=== PATIENT | female | born 1995 | race Caucasian/White ===

== ENCOUNTER 2021-08-10 20:20 | Outpatient (REF) | payer BC, SELFPAY ==
[2021-08-13 09:57] LABS: HIV-1/2 Ag & Ab Screen Negative (Negative)
[2021-08-13 13:45] LABS: Syphilis Serology (RPR) Negative (Negative)
[2021-08-13 15:38] LABS: Chlamydia Result Negative (Negative); GC Result Negative (Negative)
== END 2021-08-10 20:21 | disposition home or self-care (01) ==
LOC: NCHCN 20:20
PROVIDERS: Visit Provider Registered Nurse
DX: Z11.3 Encounter for screening for infections with a predominantly sexual mode of transmission (principal); Z11.4 Encounter for screening for human immunodeficiency virus [HIV]
CPT/HCPCS: 87389; 87491; 87591; 86592

== ENCOUNTER 2022-04-23 02:08 | Outpatient (CLI) | payer BC, SELFPAY ==
[2022-04-23 11:51] LABS: Panorama Kit Sent via Fed Ex
[2022-04-23 12:00] LABS: Abs Immature Grans 0.04 10^3/uL (0.0-0.06); Absolute Basophil Count 0.03 10^3/uL (0.0-0.2); Absolute Eosinophil Count 0.06 10^3/uL (0.0-0.7); Absolute Lymphocyte Count 2.05 10^3/uL (1.2-3.4); Absolute Monocyte Count 0.84 10^3/uL (0.1-0.8); Basophils % 0.3; Eosinophils % 0.6; HCT 36.5 % (36.0-46.0); HGB 13.1 g/dL (11.2-15.7); Immature Grans % 0.4; Lymphocytes % 19.1; MCH 33.1 pg (27.0-33.0); MCHC 35.9 % (32.0-36.0); MCV 92 fL (80-95); MPV 10.2 fL (8.0-11.0); Monocytes % 7.8; Neutrophils % 71.8; Platelet Count 230 10^3/uL (130-400); RBC 3.96 10^6/uL (3.93-5.22); RDW 12.8 % (11.7-14.6); RDW-SD 42.8 fL; WBC 10.72 10^3/uL (4.4-10.8)
[2022-04-24 09:34] LABS: Hepatitis B Surface Ag Negative (Negative)
[2022-04-24 10:16] LABS: HIV-1/2 Ag & Ab Screen Negative (Negative)
[2022-04-24 12:15] LABS: Hepatitis C Ab w Rflx HCV PCR Negative (Negative)
[2022-04-25 12:24] LABS: Varicella IgG Antibody Positive (See Note)
[2022-04-25 12:26] LABS: Rubella IgG Ab (UVM) Positive (See Note)
[2022-04-26 13:35] LABS: Syphilis IgG w/Reflex Nonreactive (Nonreactive)
[2022-04-28 22:53] LABS: Specimen WB Whole Blood
[2022-05-06 11:28] LABS: Result Summary NEGATIVE; Specimen WB Whole Blood
== END 2022-04-23 02:09 | disposition home or self-care (01) ==
LOC: LBO 02:08
PROVIDERS: Visit Provider Advanced Practice Midwife
DX: Z34.02 Encounter for supervision of normal first pregnancy, second trimester
CPT/HCPCS: 36415; 81220; 81222; 81329; 86787; 86803; 86850; 86900; 86901; 87340; 87389; 85025; 86762; 86780

== ENCOUNTER 2022-04-23 13:20 | Outpatient (REF) | payer BC, SELFPAY ==
--- NOTE | 2022-04-23 11:30 | PAPFT_PTH ---
PATIENT: Ana M Gaston LOC: [facility] U#:[id number] AGE/SX: 26/F ROOM: RE04/23/[address]: Kylie Vasquez CNM : 1995 BED: DIS: 04/23/2022 SPEC #: [id number] RECD: 04/23/22 18:38 STATUS: JOHN REQ #: [id number] ORION: 04/23/22 11:[address]: Kylie Vasquez DEPT: [facility] Cytology RECD BY: Jessica Mcelroy Tissues: 1 - CX/ENDOCX FOR PAP SMEARS Procedures: PAP THIN PREP/UVM Screening Comments: [id number]
== END 2022-04-23 13:21 | disposition home or self-care (01) ==
LOC: LBN 13:20
PROVIDERS: Visit Provider Advanced Practice Midwife
DX: Z12.4 Encounter for screening for malignant neoplasm of cervix (principal)
CPT/HCPCS: 88142

== ENCOUNTER 2022-04-23 13:21 | Outpatient (REF) | payer BC, SELFPAY ==
[2022-04-24 13:55] LABS: Chlamydia Result Negative (Negative); GC Result Negative (Negative)
== END 2022-04-23 13:22 | disposition home or self-care (01) ==
LOC: LBN 13:21
PROVIDERS: Visit Provider Advanced Practice Midwife
DX: Z34.91 Encounter for supervision of normal pregnancy, unspecified, first trimester (principal)
CPT/HCPCS: 87491; 87591; 87086

== ENCOUNTER 2022-08-02 02:09 | Outpatient (CLI) | payer BC, SELFPAY ==
[2022-08-02 08:04] LABS: HCT 33.4 % (36.0-46.0); HGB 11.9 g/dL (11.2-15.7); MCH 34.6 pg (27.0-33.0); MCHC 35.6 % (32.0-36.0); MCV 97 fL (80-95); MPV 9.5 fL (8.0-11.0); Platelet Count 199 10^3/uL (130-400); RBC 3.44 10^6/uL (3.93-5.22); RDW 12.7 % (11.7-14.6); RDW-SD 44.2 fL; WBC 9.69 10^3/uL (4.4-10.8)
== END 2022-08-02 02:10 | disposition home or self-care (01) ==
LOC: LBO 02:10
PROVIDERS: Advanced Practice Midwife; Visit Provider Advanced Practice Midwife
DX: O36.0120 Maternal care for anti-D [Rh] antibodies, second trimester, not applicable or unspecified (principal); Z3A.27 27 weeks gestation of pregnancy; Z67.91 Unspecified blood type, Rh negative
CPT/HCPCS: 36415; 85027; 86850; 90384

== ENCOUNTER 2022-08-16 01:53 | Outpatient (CLI) | payer BC, SELFPAY ==
[2022-08-16 08:55] LABS: Glucose,1 Hr (Glucola) 91 mg/dL (80-140)
== END 2022-08-16 01:54 | disposition home or self-care (01) ==
LOC: LBO 01:54
PROVIDERS: Advanced Practice Midwife; Visit Provider Advanced Practice Midwife
DX: Z34.90 Encounter for supervision of normal pregnancy, unspecified, unspecified trimester (principal)
CPT/HCPCS: 36415; 82950

== ENCOUNTER 2022-10-03 16:00 | Outpatient (REF) | payer BC, SELFPAY ==
[2022-10-03 17:43] LABS: *AMPHETAMINES SCREEN URINE Negative (Negative); *BARBITURATES SCREEN URINE Negative (Negative); *BENZODIAZEPINES SCREEN URINE Negative (Negative); Cannabinoids THC Negative (Negative); Cocaine Screen,Urine Negative (Negative); METHADONE URINE SCREEN Negative (Negative); OPIATES URINE SCREEN Negative (Negative)
[2022-10-03 17:45] LABS: Tricyclic Antidepressants Negative (Negative)
[2022-10-10 12:59] LABS: Buprenorphine Negative ng/mL (Cutoff: 5.0)
== END 2022-10-03 16:01 | disposition home or self-care (01) ==
LOC: LBN 16:00
PROVIDERS: Visit Provider Advanced Practice Midwife
DX: Z34.93 Encounter for supervision of normal pregnancy, unspecified, third trimester (principal); Z36.85 Encounter for antenatal screening for Streptococcus B; Z3A.36 36 weeks gestation of pregnancy
CPT/HCPCS: 80307; 80348; 87081

== ENCOUNTER 2022-10-19 20:13 | Inpatient (IN) | payer BC, SELFPAY ==
--- NOTE | 2022-10-19 21:10 | W.PM.OBHPL1 ---
Date of service: 10/19/22 Time of Service: 21:10 Assessment and Plan Assessment and plan (1) Normal labor: Status: Acute Assessment and plan: A: 27 yo G1 @ 38+4 wks Spontaneous onset of labor GBS negative, low risk for SD or PPH Category 1 tracing Rh negative, received RhoGam P: Admit to BC, CBC, T&S Pt plans unmedicated labor and Intermittent auscultation, oral intake as tolerated Anticipate OB-HPI Labor/Delivery History of Present Illness Reason for Visit: R/O Labor Chief Complaint: Uterine Contractions (since 1600, no bleeding, no ROM). GEO Calculator Estimated Delivery Date Method Current WG Current Estimate 10/29/22 Ultrasound #1 38w 4d Other Estimates 11/05/22 LMP (Uncertain) 37w 4d History of Present Expected Delivery Route/Plan - CNM FOB/Randy Gaston (first child) BG Summer Hopes to avoid epidural, wants active labor & nitrous On line Baby 360 course GBS negative Specific Issues/Plan 1. cfDNA LR female, CF neg, SMA=negative, 2nd trimester AFP only declined 05/24/22 2. Declines UDS, does not seem to be at risk 3. RH neg - discuss with Elvi Viramontes at 28 weeks given 08/02/22 4. 27-28 week US for low lying placenta 8.2cm from os 08/02/22 5. Bilateral choroid plexus cysts on US, cfDNA in normal and negates this finding, pt aware 6. Left groin pain - tylenol recommended and rest, referred to [facility] Assessment: History Reviewed & Current Review of Systems Narrative: ROS completed and found to be noncontributory other then HPI PFSH All Active Problems (Updated 10/19/22 @ 21:16 by Courtney Katz) Normal labor (Acute) Left groin pain (Acute) Chronic back pain (Acute) (Acute) Medical History (Updated 10/19/22 @ 21:16 by Courtney Katz) Low lying placenta nos or without hemorrhage, second trimester resolved Surgical History (Updated 04/23/22 @ 10:10 by Kylie Vasquez CNM) [place] teeth extracted age 18 no problems with anesthesia Family History (Updated 04/23/22 @ 10:13 by Kylie Vasquez CNM) Maternal Grandmother Diabetes Anxiety Maternal Grandfather FH: kidney cancer Stroke Dementia Sister Anxiety Social History (Updated 04/23/22 @ 10:14 by Kylie Vasquez CNM) Smoking/Tobacco Use Status: Never Smoking risk assessment performed?: Yes History History 1 Para 0 Hx # Term Pregnancies 0 Multiple births 0 Hx # Pregnancies 0 Ectopic pregnancies 0 AB induced 0 Hx Number of Living Children 0 AB spontaneous 0 Meds Allergies and Home Medications Allergies Allergy/AdvReac Type Severity Reaction Status Date / Time No Known Allergies Allergy Verified 10/16/22 09:30 Home Medications Medication Instructions Recorded Confirmed Type vitamins no.119-iron tab PO 04/23/22 10/16/22 History fumarate 29 mg-folic acid 1 mg tablet Exam Physical Exam Vital Signs Reviewed: Yes Constitutional Constitutional: moderate distress, average body habitus and cooperative Detailed Labor and Delivery Exam Dilation: 7 Effacement (%): 100 station: -2 Consistency: soft Amniotic Membrane Status: Intact (large BBOW) Contraction Frequency(min): q3-4 Contraction Intensity: Moderate/Strong Fetus A Heart Rate Baseline: 130 Monitor Accelerations: Present Monitor Decelerations: None Variability: Moderate (6-25 BPM) Categories: Category I Est. Weight: 7 lb 0.877 oz Est. Weight: 3200 gms HEENT Exam HEENT Exam: Normal Neck Exam Neck Exam: Normal Chest/Brest/Axilla Exam Chest Exam: Normal Breast Exam Breast Exam: Not Done Respiratory Exam Respiratory Exam: Normal Cardiovascular Exam Cardiovascular Exam: Normal Abdominal Exam Abdominal Exam: Normal (Gravid, nontender) Rectal Exam Rectal Exam: Normal Exam Exam: Normal Extremities Exam Extremities Exam: Normal Back/Spine/Pelvis Exam Back Exam: Normal Pelvis Adequate: Yes Skin Exam Skin Exam: Normal Neurological Exam Neurological Exam: Normal Psychiatric Exam Psychiatric Exam: Normal Results Results Group Beta Strep: Negative Blood Type: A- Rubella Status: Immune Varicella Immunity: Immune Risk Assessment Risk for Shoulder Dystocia Historical/Initial OB: NEGATIVE FOR: Pelvic Abnormality, Pre- BMI>30, Previous Shoulder Dystocia or Previous Macrosomia 36 Weeks: NEGATIVE FOR: Current Gestational DM, EFW>4500gms or Maternal Weight Gain>40lbs Increased Risk?: No Date/Initial: 04/23/22 KH Delivery Plan @ 36wks: spont labor, Risk for Pre-Eclampsia Date Initiated/Initials: 04/23/22 JOSSELIN Yes, if one or more: NEGATIVE FOR: Hx Pre-E/Gest HTN, Chronic HTN, Multiple Gestation, Pre-gestational DM, Renal Disease, Systemic Lupus or APA Syndrome Yes, if 2 or more: POSITIVE FOR: Nulliparity; NEGATIVE FOR: Age>= 35 yrs, >10yr btwn pregnancies, BMI>30, ethinicty, Mother/Sister w/ Pre-E or Previous IUGR Risk for Post- Hemorrhage Initial: NEGATIVE FOR: Multiple Gestation, Previous PPH, Known Clotting Deficiency, Grand Multiparity or Anticoagulation 36 Weeks: NEGATIVE FOR: Anemia, hgb<10, Low platelets(thrombocytopenia), Gestational HTN or Pre-E, Polyhydraminios or EFW>4500gms At Risk?: No Counseled re: Active Management: Yes Risks Reviewed Risks Reviewed Upon Admission: Yes
[2022-10-19 21:21] VITALS: BP 115/77; PULSE 74
[2022-10-19 21:34] LABS: HCT 37.7 % (36.0-46.0); HGB 13.5 g/dL (11.2-15.7); MCH 34.2 pg (27.0-33.0); MCHC 35.8 % (32.0-36.0); MCV 95 fL (80-95); MPV 10.6 fL (8.0-11.0); Platelet Count 220 10^3/uL (130-400); RBC 3.95 10^6/uL (3.93-5.22); RDW 12.8 % (11.7-14.6); RDW-SD 44.3 fL; WBC 18.39 10^3/uL (4.4-10.8)
[2022-10-19] MEDS: Oxytocin 10 UNITS/ML VIAL IM (23:15)
[2022-10-19 23:35] VITALS: BP 121/73; PULSE 80
[2022-10-19] MEDS: miSOPROStol 200 MCG TAB 400 MCG SL (23:45)
[2022-10-19 23:55] VITALS: BP 128/74; PULSE 91
[2022-10-20 00:12] VITALS: BP 127/72; PULSE 93
[2022-10-20] MEDS: Acetaminophen 325 MG TAB 650 MG PO ×3 (01:37→21:13)
[2022-10-20] MEDS: Ibuprofen 600 MG TAB PO ×3 (01:45→21:13)
[2022-10-20] MEDS: Hamamelis Leaf/Glycerin 100 EACH BOX PR (04:44)
[2022-10-20] MEDS: Dibucaine 1% 28 GM TUBE TP (04:45)
[2022-10-20] MEDS: Benzocaine 20% 60 ML CAN (05:52)
[2022-10-20 08:35] VITALS: BP 110/73; PULSE 85; RESP 16; TEMP 36.4; O2SAT 97
[2022-10-20] MEDS: Docusate Sodium 100 MG CAP PO ×2 (08:54→21:13)
--- NOTE | 2022-10-20 10:22 | W.PM.OBNL1 ---
Date of service: 10/19/22 Time of Service: 21:40 Contractions Monitor Mode: Palpation Contraction Frequency(min): q2-4 Intensity: Moderate/Strong Fetus A Monitor: Doppler Heart Rate Baseline: 125 FHR Rhythm: Regular Characteristics: Normal Amniotic Membrane Status: Intact (large forebag present) Assessment and Plan Assessment and plan (1) Uterine contractions: Status: Acute Assessment and plan: A: Primip 38 wks precipitous active labor, approaching 2nd stage Unit volume requiring 2nd Provider immediately P: Dr. Roche en route, FHT's remain reassuring by doppler Anticipate attended by Objective Abnormal lab results 10/19/22 Range/Units 21: WBC 18.39 H (4.4-10.8) 10^3/uL MCH 34.2 H (27.0-33.0) pg Pulse BP 93 H 127/72 10/20/22 00:12 10/20/22 00:12 Laboratory Results WBC 18.39 10^3/uL (4.4-10.8) H 10/19/22 21: RBC 3.95 10^6/uL (3.93-5.22) 10/19/22 21: Hgb 13.5 g/dL (11.2-15.7) 10/19/22 21: Hct 37.7 % (36.0-46.0) 10/19/22 21: MCV 95 fL (80-95) 10/19/22 21: MCH 34.2 pg (27.0-33.0) H 10/19/22 21: MCHC 35.8 % (32.0-36.0) 10/19/22: RDW 12.8 % (11.7-14.6) 10/19/22 21: Plt Count 220 10^3/uL (130-400) 10/19/22 21: MPV 10.6 fL (8.0-11.0) 10/19/22 21: Patient ABO/Rh A Negative 10/19/22 21: Antibody Screen POSITIVE 10/19/22 21: Antibody Identification Anti-D 10/19/22 21: Rhogam Unit Number [id number] 10/19/22 21:23 Unit Expiration Date 03/22/2023 10/19/22 21:23 Product Lot # [id number] 10/19/22 21:23 Vital Signs Reviewed: Yes Objective Narrative Objective Narrative: Pt moving around the room, sitting on toilet, leaning over the bed, using shower, Now reporting increasing pelvic pressure. No ROM or bleeding. Last exam by RN was 8 cm dilation, unit volume requiring CNM in another delivery Dr. Roche paged for impending near simultaneous deliveries. Subjective Interval history since last seen: Now reporting increasing pelvic pressure. No ROM or bleeding. Very active in room, moving and changing positions/locations. Maintains desire for unmedicated labor and .
--- NOTE | 2022-10-20 10:37 | OBVDS_ITS ---
Date of service: 10/20/22 Time of Service: 23:45 OB Labor/ Delivery Information Baby A Delivery Delivery Method: Spontaneaous Presentation: Joslyn Breech Breech Position: Joslyn Cord Description-Baby A: 3 Vessels Amniotic Fluid: Meconium Estimated Blood Loss: 250 QBL Delivery Outcome: Liveborn Complications: Nonvigorous on delivery requiring resuscitation in warmer by Field Consultant, responded rapidly to brief PPV and CPAP, 5 min score 8, in mother's arms for S2S @ 7 minutes. Infant Transferred: Remains with Mother Note: Pt arrived in center at 7 cm dilation, progressed rapidly through labor with difficulty tolerating vaginal examination and large forebag initially obscuring clear identification of presenting part. Unit volume and acuity required Dr. Roche to be paged to attend delivery as CNM was attending ano ther delivery, it was apparent there would be near simultaneous deliveries. Complete dilation noted 45 minutes after admission H&P by RN exam, Dr. Roche arriving shortly thereafter. Forebag was visible at introitus and MD performed AROM thereby identifying joslyn breech presentation, see MD note. Field Consultant paged to attend , preparations made for imminent vaginal breech delivery. CNM was able to arrive bedside to assist as needed, FHT's generally 125-135 bpm. Pt delivered breech over intact perineum, legs delivered spontaneously, infant continued to emerge to scapula with both arms raised above head and momentarily arrested descent at that point, Dr. Roche assisted with delivery of arms and head, cord clamped and cut, nonvigorous immediately to warmer to be attended by waiting Field Consultant, cord segment set aside for cord gas collection. CNM attended third stage, Pitocin 10 units IM given, Simon placenta intact with 3VC, cord blood collected. First degree perineal laceration repaired with 3.0 Vicryl using topical hurricaine spray for analgesia, fundus firm below umbilicus, misoprostel 600 mcg PO given as precaution in setting of precipitous labor curve. [place] and crying infant placed on mother's chest at 7 minutes of age, apgars 18/9, weight 3010 gms. Reviewed events of delivery with pt and family, will continue to review and process experience as indicated. Providers Doctor: Ela Roche Nurse [place] Bottom Maker: Courtney Katz Field Consultant: Donovan Mcallister Nurse: Cheyenne Hall Labor/Delivery Information Number of Babies in Womb: 1 Steroids Given: None Reason Steroids Not Administered: N/A Group Beta Strep: Negative Antibiotics Administered: No Rubella Status: Immune Blood Type: A- Varicella Immunity: Immune Medication in Delivery: Pitocin 10 units IM Shoulder Dystocia: No Stages of Labor Onset of Labor Date: 10/19/22 Onset of Labor Time: 16:00 Complete Dilatation Date: 10/19/22 Complete Dilatation Time: 21:55 (RN exam) Labor - Stage 1 Duration: 5 hours and 55 minutes ROM Baby A: 10/19/22 ROM Baby A: 22:19 (AROM by MD) ROM Total Time- Baby A: [id number] Delivery Date-Baby A: 10/19/22 Delivery Time-Baby A: 23:09 Labor Stage 2 Duration: 1 hours and 14 minutes Placenta Delivery Date-Baby A: 10/19/22 Placenta Delivery Time-Baby A: 23:16 Labor-Stage 3 Duration: 7 minutes Total Length of Labor-Baby A: 7 hours and 9 minutes Placenta Cultured: No Placenta Status: Delivered Baby A Infant Gender: Female Gestational Status: Early Term (37-38.6 wks) Gestational Age in Weeks/Days: 38 Weeks and 4 Days weight: 6 lb 10 oz Weight Comment: 3010 gms Length-Baby A: 18.5 in Head Circumference-Baby A: 14 in Score-1 Minute Interval(Baby A) Heart Rate-1 minute: Below 100 BPM Respiratory Effort- 1 minute: No Spontaneous Effort Muscle Tone-1 minute: Limp Reflex Response-1 minute: No Response Color-1 minute: Pallor or Cyanosis Total Score-1 minute: 1 Score-5 Minute Interval(Baby A) Heart Rate- 5 minute: 100 BPM or Greater Respiratory Effort-5 minute: Spontaneous/Strong Cry Muscle Tone-5 minute: Minimal Flexion/Extension Reflex Response-5 minute: Prompt Response Color-5 minute: Bluish Hands or Feet Total Score- 5 minute: 8 Procedure Procedures: Cord Blood Collection Interventions Repair of Laceration
[2022-10-20 12:07] VITALS: BP 120/80; PULSE 79; RESP 12; TEMP 36.8
--- NOTE | 2022-10-20 12:25 | W.PM.OBPNV1 ---
Date of service: 10/20/22 Time of Service: 12:26 Assessment and Plan Assessment and plan (1) Term delivered: Status: Acute Assessment and plan: Caring for baby independently. Pain is managed well with oral analgesics. Voiding without difficulty. well. A - stable mother and baby, Post day 1 P - Discharge to home tomorrow. Routine post instructions. [facility] Subjective Subjective Interval history: S/P breech vaginal delivery. Ana M feels well. She has been out of bed independently and voiding. Breastfed her baby x 2. Patient's Mood: good baby status: Nursing well Exam Physical Exam Vital signs: Temp Pulse Resp BP Pulse Ox 98.2 F 79 12 120/80 97 10/20/22 12:07 10/20/22 12:07 10/20/22 12:07 10/20/22 12:07 10/20/22 08:35 Respiratory Exam Respiratory Exam: Normal Cardiovascular Exam Cardiovascular Exam: Normal Fundal Exam Fundus: Below Umbilicus and Firm Exam External: Present normal urethra appearance Comments: well approximated with minimal swelling. Extremities Exam Extremity Exam: Normal Psychiatric Exam Psychiatric Exam: Normal Results Hemoglobin/Hematocrit: Hgb 13.5 g/dL (11.2-15.7) 10/19/22 21:23 Hct 37.7 % (36.0-46.0) 10/19/22 21:23 Abnormal Lab Findings: Abnormal Labs 10/19/22 21:23 WBC 18.39 H MCH 34.2 H
--- NOTE | 2022-10-20 14:46 | OBCE_ITS ---
Date of service: 10/20/22 Time of Service: 14:46 Assessment and Plan Assessment and plan (1) breech palpable vaginally: Status: Acute (2) Breech delivery: Status: Resolved History of Present Illness History of Present Illness Chief Complaint: Assist with vaginal delivery Narrative: I was called to the center to assist with management of an active labor patient. Patient had arrived and active labor and achieved full dilatation status shortly after arrival to the floor and was pushing effectively with contractions. Lisbeth Katz CNM was attending a another of the patient on the unit. Bulging bag at the introitus was noted with maternal expulsive efforts. Marisela hook was used to perform assisted rupture membranes with particulate meconium fluid noted. It was then noted to joslyn meconium present on the presenting part which was a buttock in the left sacral position. heart rate remained in the 130 range category 1 tracing. I explained to the patient and her that her infant was in the position and that due to the rapid nature of the labor and imminent delivery a was not advised and I felt that the would be delivered safely as a vaginal breech. Verbal consent was obtained she would want to push effectively and the infant was delivered in the joslyn breech position with both arms swept across the chest and the head delivered atraumatically using a Brach manuever. Nuchal cord x1 was reduced after delivery of the head the cord was doubly clamped and cut and the and the infant handed off to waiting pediatric provider. Arterial cord gases obtained: ABG ph7.32, BE-8, VBG pH 7.13, BE -11. Consults Consult date: 10/19/22 Requesting physician: Ela Roche [facility] All Active Problems (Updated 10/20/22 @ 14:55 by Ela Roche MD) breech palpable vaginally (Acute) Term delivered (Acute) Left groin pain (Acute) Chronic back pain (Acute) Surgical History (Updated 04/23/22 @ 10:10 by Kylie Vasquez CNM) [place] teeth extracted age 18 no problems with anesthesia Family History (Updated 10/20/22 @ 12:34 by Kylie Armendariz CNM) Maternal Grandmother Diabetes Anxiety Maternal Grandfather FH: kidney cancer Stroke Dementia Sister Anxiety Other Uterine contractions Social History (Updated 04/23/22 @ 10:14 by Kylie Vasquez CNM) Smoking/Tobacco Use Status: Never Smoking risk assessment performed?: Yes Housing: house History History 1 Para 0 Hx # Term Pregnancies 0 Multiple births 0 Hx # Pregnancies 0 Ectopic pregnancies 0 AB induced 0 Hx Number of Living Children 0 AB spontaneous 0 Results Last Vital Signs Temp 98.2 F 10/20/22 12:07 Pulse 79 10/20/22 12:07 Resp 12 10/20/22 12:07 BP 120/80 10/20/22 12:07 Pulse Ox 97 10/20/22 08:35 Labs 10/19/22 21:23 Labs: Laboratory Results - last 24 hr 10/19/22 10/19/22 21:23 21:23 WBC 18.39 H RBC 3.95 Hgb 13.5 Hct 37.7 MCV 95 MCH 34.2 H MCHC 35.8 RDW 12.8 Plt Count 220 MPV 10.6 Patient ABO/Rh A Negative Antibody Screen POSITIVE Antibody Identification Anti-D Rhogam Unit Number [id number] Unit Expiration Date 03/22/2023 Product Lot # [id number]
[2022-10-20 14:57] VITALS: BP 103/60; PULSE 81; RESP 16; TEMP 36.7
--- NOTE | 2022-10-20 18:33 | W.PM.OBPNV1 ---
Date of service: 10/20/22 Time of Service: 18:33 Assessment and Plan Assessment and plan (1) Urinary retention with incomplete bladder emptying: Status: Acute Assessment and plan: Ana M got up to try to void some more. She voided an additional 210. The bladder scanner indicated 112-221 cc remaining. She was encouraged to try voiding again in 30 minutes and will re-assess with bladder scanner. Subjective Subjective Interval history: Ana M got up to void earlier today. When I assessed her, her uterus was at U and a full bladder was palpable. I ordered a bladder scan after voiding. She voided 800 CC and there was 700 cc indicated with the bladder scanner. She was straight cathed 1325 for 700 cc and the uterus was down 2 FB after straight cath. She was up to void at 1600 for 200 cc and then again at 1830 she voided 200 cc. After voiding the uterus was down 2 FB and firm but a full bladder was palpable. At that time she had no urge to void. Ana M wishes to avoid catheterization. Exam Physical Exam Vital signs: Temp Pulse Resp BP Pulse Ox 98.1 F 81 16 103/60 97 10/20/22 14:57 10/20/22 14:57 10/20/22 14:57 10/20/22 14:57 10/20/22 08:35 Fundal Exam Fundus: Below Umbilicus and Firm Comment: fundus firm and down 2 FB after voiding. Results Hemoglobin/Hematocrit: Hgb 13.5 g/dL (11.2-15.7) 10/19/22 21:23 Hct 37.7 % (36.0-46.0) 10/19/22 21:23 Abnormal Lab Findings: Abnormal Labs 10/19/22 21: WBC 18.39 H MCH 34.2 H
--- NOTE | 2022-10-21 00:55 | OBPPV_ITS ---
Date of service: 10/21/22 Time of Service: 00:55 Assessment and Plan Assessment and plan (1) Urinary retention with incomplete bladder emptying: Status: Acute Assessment and plan: RN was instructed to continue to encourage frequent urination and to perform bladder scan after voiding if indicated. Subjective Subjective Interval history: Paged by RN at 2100 and Ana M had voided and bladder scan by RN indicated 200- 300 cc residual. At that time, perez catheter was offered and Ana M declined. She went to sleep and did not void again until 0100 when she voided 150 with 100-200 residual dterected with bladder scanner. Patient's Mood: tired feeding status: Exclusively breast feeding Exam Physical Exam Vital signs: Temp Pulse Resp BP Pulse Ox 98.1 F 81 16 103/60 97 10/20/22 14:57 10/20/22 14:57 10/20/22 14:57 10/20/22 14:57 10/20/22 08:35 Results Hemoglobin/Hematocrit: Hgb 13.5 g/dL (11.2-15.7) 10/19/22 21:23 Hct 37.7 % (36.0-46.0) 10/19/22 21:23 Abnormal Lab Findings: Abnormal Labs 10/19/22 21:23 WBC 18.39 H MCH 34.2 H
[2022-10-21] MEDS: Acetaminophen 325 MG TAB 650 MG PO (06:21)
[2022-10-21] MEDS: Ibuprofen 600 MG TAB PO (06:22)
[2022-10-21 06:28] VITALS: BP 103/66; PULSE 69; TEMP 36.7
[2022-10-21 07:02] LABS: HCT 30.9 % (36.0-46.0); MCH 34.7 pg (27.0-33.0); MCHC 35.6 % (32.0-36.0); MCV 98 fL (80-95); MPV 10.5 fL (8.0-11.0); Platelet Count 182 10^3/uL (130-400); RBC 3.17 10^6/uL (3.93-5.22); RDW 13.3 % (11.7-14.6); RDW-SD 46.8 fL; WBC 12.63 10^3/uL (4.4-10.8)
--- NOTE | 2022-10-21 11:09 | DSE_ITS ---
Date of service: 10/21/22 Time of Service: 11:10 DS: Diagnosis Discharge Diagnosis (1) Urinary retention with incomplete bladder emptying: Status: Acute Asessment and Plan: Symptoms resolved. Reviewed what symptoms to watch for at home. (2) Term delivered: Status: Acute Asessment and Plan: Caring for baby independently. Pain is managed well with oral analgesics. Voiding without difficulty. well. Ana M experienced urinary retention with incomplete emptying in the first 24 hours. She has been emptying well today confirmed by the bladder scanner and passing a few clots. Her body feels achey. A - stable mother and baby , Post day 2 P - Discharge to home today. Routine post instructions. Discussed pain relief options and a tub bath was recommended at home. [facility] Discharge Plan Disposition Patient Disposition: Home Condition: Good Discharge Details Reason For Visit: Early Labor at Term Admit Date/Time: 10/19/22 20:13 Admit Provider: Courtney Katz Attending Provider: Courtney Katz Home Meds and New Rx's Prescriptions: No Action 19 29 mg iron- 1 mg tablet 1 tab PO DAILY Discharge Instructions Stand Alone Forms: Instructions, Post Vaginal Deliver Activity:: Activity as Tolerated Equipment/Supplies:: No Equipment Needed Diet:: As Tolerated Discharge Orders Discharge Orders: Discharge Order (Routine); Ordered 10/21/22 Ordered By: Kylie Armendariz OB:DS Summary Summary Vaginal Delivery Method: Spontaneaous Episiotomy Description: None Laceration Extension: First Degree Contraception Discussed Contraception Discussed: Yes Contraceptive Plan: Not planning to use and Control Pill/Patch, [place] Gender-Baby A: Female weight: 6 lb 10 oz Status at Discharge Functional status at discharge: independent ambulation Overall status at discharge: patient is back to baseline Mental Status: mental status grossly normal Speech and Movement: speech and movement normal Mood: congruent mood Affect: normal affect Exam Physical Exam Vital signs: Temp Pulse Resp BP Pulse Ox 98.1 F 69 16 103/66 97 10/21/22 06:28 10/21/22 06:28 10/20/22 14:57 10/21/22 06:28 10/20/22 08:35 Respiratory Exam Respiratory Exam: Normal Cardiovascular Exam Cardiovascular Exam: Normal Fundal Exam Fundus: Below Umbilicus and Firm Extremities Exam Extremity Exam: Normal Skin Exam Skin Exam: Normal Psychiatric Exam Psychiatric Exam: Normal (very tired) PFSH All Active Problems (Updated 10/20/22 @ 18:40 by Kylie Armendariz CNM) Urinary retention with incomplete bladder emptying (Acute) breech palpable vaginally (Acute) Term delivered (Acute) Left groin pain (Acute) Chronic back pain (Acute) Surgical History (Updated 04/23/22 @ 10:10 by Kylie Vasquez CNM) [place] teeth extracted age 18 no problems with anesthesia Family History (Updated 10/20/22 @ 12:34 by Kylie Armendariz CNM) Maternal Grandmother Diabetes Anxiety Maternal Grandfather FH: kidney cancer Stroke Dementia Sister Anxiety Other Uterine contractions Social History (Updated 04/23/22 @ 10:14 by Kylie Vasquez CNM) Smoking/Tobacco Use Status: Never Smoking risk assessment performed?: Yes Housing: house History History 1 Para 0 Hx # Term Pregnancies 0 Multiple births 0 Hx # Pregnancies 0 Ectopic pregnancies 0 AB induced 0 Hx Number of Living Children 0 AB spontaneous 0 DS: Data Vitals/I&O Vitals and I&O: Vital Signs Temperature 98.1 F 10/21/22 06:28 Temperature Source Oral 10/21/22 06:28 Pulse 69 10/21/22 06:28 Pulse Rhythm Regular 10/21/22 01:20 Respiratory Rate 16 10/20/22 14:57 Blood Pressure 103/66 10/21/22 06:28 Blood Pressure Mean 78 10/21/22 06:28 Pulse Oximetry 97 10/20/22 08:35 Oxygen Delivery Method Room Air 10/19/22 21:05 Oxygen Flow Rate 0 10/19/22 21:05 Pain Level 6 10/20/22 08:53 Intake & Output 10/20/22 10/20/22 10/21/22 11:59 23:59 11:59 Output Total 500 / 2650 2150 / 2650 770 / 770 Balance -500 / -2650 -2150 / -2650 -770 / -770 Output: Urine 500 / 2650 2150 / 2650 770 / 770 Other: Urine Color Yousif Yousif [place] Urine Appearance Clear Clear Clear Urine Odor None None Comment pt voided while using the sitz bath, unknown amount pt voided while rn performing 24 hour testing on in nursery. pt sleeping when rn returned to room. will assess PVR after next void Voiding Methods Toilet Toilet Data Completed and Pending Labs on day of discharge: Labs from last 24 hours 10/21/22 10/20/22 06:50 07:30 WBC 12.63 H RBC 3.17 L Hgb 11.0 L D Hct 30.9 L MCV 98 H MCH 34.7 H MCHC 35.6 RDW 13.3 Plt Count 182 MPV 10.5 Screen Negative
== END 2022-10-21 13:15 | disposition home or self-care (01) | DRG 806 ==
PROVIDERS: Advanced Practice Midwife; Admitting Provider Advanced Practice Midwife; Visit Provider Advanced Practice Midwife
DX: O36.0930 Maternal care for other rhesus isoimmunization, third trimester, not applicable or unspecified; Z37.0 Single live birth; O32.1XX0 Maternal care for breech presentation, not applicable or unspecified; O70.0 First degree perineal laceration during delivery; Z3A.38 38 weeks gestation of pregnancy; O69.81X0 Labor and delivery complicated by cord around neck, without compression, not applicable or unspecified; G89.29 Other chronic pain; M54.9 Dorsalgia, unspecified; O75.89 Other specified complications of labor and delivery
CPT/HCPCS: 36415; 85027; 85461; 86850; 86900; 86901; 90384; 86870; J2590; J2790; J3490

== ENCOUNTER 2022-11-18 14:44 | Outpatient (CLI) | payer BC, SELFPAY ==
[2022-11-18 16:07] LABS: HCT 39.2 % (36.0-46.0); HGB 13.7 g/dL (11.2-15.7); MCH 33.4 pg (27.0-33.0); MCHC 34.9 % (32.0-36.0); MCV 96 fL (80-95); Platelet Count 306 10^3/uL (130-400); RDW 11.8 % (11.7-14.6); RDW-SD 41.2 fL; WBC 8.67 10^3/uL (4.4-10.8)
[2022-11-18 16:15] LABS: ESR 4 mm/hr (0-20)
== END 2022-11-18 14:45 | disposition home or self-care (01) ==
LOC: LBO 14:49
PROVIDERS: Visit Provider Advanced Practice Midwife
DX: N93.8 Other specified abnormal uterine and vaginal bleeding (principal)
CPT/HCPCS: 36415; 85027; 85652

== ENCOUNTER 2024-11-17 02:06 | Outpatient (CLI) | payer BC, SELFPAY ==
[2024-11-17 10:18] LABS: Abs Immature Grans 0.05 10^3/uL (0.0-0.06); HCT 36.9 % (36.0-46.0); HGB 12.9 g/dL (11.2-15.7); Immature Grans % 0.5 %; MCH 32.0 pg (27.0-33.0); MCHC 35.0 % (32.0-36.0); MCV 92 fL (80-95); MPV 9.9 fL (8.0-11.0); Platelet Count 216 10^3/uL (130-400); RBC 4.03 10^6/uL (3.93-5.22); RDW 12.3 % (11.7-14.6); RDW-SD 41.2 fL; WBC 9.75 10^3/uL (4.4-10.8)
[2024-11-17 19:30] LABS: HIV-1/2 Ag & Ab Screen Negative (Negative); Hepatitis C Ab w Rflx HCV PCR Negative (Negative)
[2024-11-18 10:17] LABS: Rubella IgG Ab (UVM) Positive (See Note)
[2024-11-19 21:22] LABS: Syphilis IgG w/Reflex Nonreactive (Nonreactive)
== END 2024-11-17 02:07 | disposition home or self-care (01) ==
LOC: LBO 02:07
PROVIDERS: PCP Family Medicine; Visit Provider Advanced Practice Midwife
DX: Z34.91 Encounter for supervision of normal pregnancy, unspecified, first trimester (principal)
CPT/HCPCS: 36415; 86787; 86803; 86850; 86900; 86901; 87340; 87389; 85025; 86762; 86780

== ENCOUNTER 2024-11-17 09:35 | Outpatient (REF) | payer BC, SELFPAY ==
[2024-11-18 13:17] LABS: Chlamydia Result Negative (Negative); GC Result Negative (Negative)
== END 2024-11-17 09:36 | disposition home or self-care (01) ==
LOC: LBN 09:35
PROVIDERS: PCP Family Medicine; Visit Provider Advanced Practice Midwife
DX: Z34.91 Encounter for supervision of normal pregnancy, unspecified, first trimester (principal)
CPT/HCPCS: 87491; 87591; 87086

== ENCOUNTER 2024-12-21 18:30 | Observation (INO) | payer BC, SELFPAY ==
[2024-12-21 17:14] VITALS: BP 113/63; PULSE 81
[2024-12-21 17:17] VITALS: BP 113/63; PULSE 90; RESP 18; TEMP 36.6; O2SAT 100
--- NOTE | 2024-12-21 18:34 | W.PM.OBHPL1 ---
Date of service: 12/21/24 Time of Service: 18:34 Assessment and Plan Assessment and plan (1) Vaginal bleeding: Status: Acute Assessment and plan: 29 yo (h/o breech x1) presents at 16 1/7 as dated by LMP equal to 8 wk US (GEO 06/06/2025) - Rh neg / Rub I / VZV I / GBS unknown - complicated by Rh negative status, h/o breech vaginal - - - - - - - - - - - - - - 12/21/2024 ([place]): Patient presents with complaint of random vaginal bleeding noted earlier today. It was an isolated event but notable. She denies cramping, recent intercourse in the last 48 hours, or recent trauma. She has no bleeding / clotting disorders. Her workup is remarkable for a concerning amount of [albeit old] blood in the vaginal vault; otherwise, there is no overt evidence of pathology. Given the amount of blood in the vaginal vault, I opted to monitor her overnight (she lives 40 minutes away from the hospital). Rhogam administered. IV and labs in an abundance of caution. Vitals and FHT's q8 hours. - - - - - - - - - - - - - - OB-HPI Labor/Delivery History of Present Illness Reason for Visit: NST Chief Complaint: Vaginal Bleeding , Associated Signs and Symptoms of Vaginal Bleeding: N/A. GEO Calculator Estimated Delivery Date Method Current Current Estimate 06/06/25 LMP (Certain) 16w 1d Comments: This is a 29 yo (h/o breech x1) presents at 16 1/7 as dated by LMP equal to 8 wk US (GEO 06/06/2025) presents to L&D for assessment of vaginal bleeding. History of Present Expected Delivery Route/Plan - CNM FOB - Lissette Gaston (2nd baby together) Will learn gender at delivery Specific Issues/Plan 1. cfDNA ,low risk x5, gender not reported, Carrier Screening-low risk: CF/SMA neg (prior ) BMI 22 FOB Lissette 2. Rh-Neg: Rh with NIPS-fetus Rh pos, RhoGAM___ 3. Hx of rapid vaginal BREECH delivery. 36 week US to confirm presentation__ 3a. presentation check weekly PRN (to provide reassurance) & on presentation to the [facility] in labor 3b. Pt experienced trauma @ prev deliv, worried she'll precip this time 3c. Discussed option for possible IOL if cvx is favorable after 39 wks, local therapist list given to pt Review of Systems All systems reviewed & are unremarkable except as noted in HPI and below PFSH All Active Problems (Updated 11/17/24 @ 11:59 by Courtney Katz) Rh negative status during (Acute) Supervision of other normal (Acute) (Acute) Late menses (Acute) Chronic back pain (Acute) Left groin pain (Acute) Vaginal bleeding (Acute) Medical History (Updated 11/17/24 @ 11:59 by Courtney Katz) Encounter for care of lactating mother problem Term delivered Surgical History (Updated 04/23/22 @ 10:10 by Kylie Vasquez CNM) [place] teeth extracted age 18 no problems with anesthesia Family History (Updated 10/20/22 @ 12:34 by Kylie Armendariz CNM) Maternal Grandmother Diabetes Anxiety Maternal Grandfather FH: kidney cancer Stroke Dementia Sister Anxiety Other Uterine contractions Social History (Updated 04/23/22 @ 10:14 by Kylie Vasquez CNM) Smoking/Tobacco Use Status: Never Smoking risk assessment performed?: Yes Housing: house History History 2 Para 1 Hx # Term Pregnancies 1 Multiple births 0 Hx # Pregnancies 0 Ectopic pregnancies 0 AB induced 0 Hx Number of Living Children 1 AB spontaneous 0 Past Pregnancies Del. Date GA/Weeks # Preg Succ Route Wgt Sex Labor Lgth Anesthesia Location Prov Complic 10/20/22 38 No Yes vaginal 6 lb 10 oz Female 7hrs 9min MD Ita/CHRISSY Javier other Delivery Date: 10/20/22 Last Updated by: Talisha Barrett MD 8/9; limp/no spontaneous respiratory effort/pallor/cyanosis; Baby placed in warmer, requiring resc. breathing by Identity Management Consultant. Patient was transferred from [facility] at 3cm dilation; Patient presented with fetus in joslyn breech presentation. Meds Allergies and Home Medications Allergies Allergy/AdvReac Type Severity Reaction Status Date / Time No Known Allergies Allergy Verified 12/15/24 08:36 Home Medications Medication Instructions Recorded Confirmed Type vitamins no.119-iron 1 tab PO DAILY 04/23/22 12/15/24 History fumarate 29 mg-folic acid 1 mg tablet ( 19) Exam Physical Exam Vital signs: Temp Pulse Resp BP Pulse Ox 97.9 F 90 18 113/63 100 12/21/24 17:17 12/21/24 17:17 12/21/24 17:17 12/21/24 17:17 12/21/24 17:17 Narrative: general: well nourished female in no immediate distress pulm: No overt respiratory distress abd: gravid, soft, non-tender ext: no swelling psych: calm, appropriate, cooperative : Speculum exam appreciates joslyn, dark red blood in the vaginal; cleared using three soaked sanchez swabs without evidence of active repooling. No pooling in the vaginal vault even with valsalva. Cervix closed. Detailed Labor and Delivery Exam Jackson Score: Cervical Points Exam 0 1 2 3 Dilation Closed 1-2cm 3-4 cm 5-6cm Effacement 0-30% 40-50% 60-70% 80% Consistency Firm Medium Soft Station -3 -2 -1,0 +1,+2 Position Posterior Mid Anterior Ultrasound OB Ultrasound done for other reason. (Complete transabdominal US finds a transverse-left with back-down lie fetus with notable movement and FHT of 145. MVP 3.57 cm and subjectively plentiful. No overt evidence of debris. Placenta is posterior and largely unremarkable. Complete transvaginal US also performed: CL 4.22 cm, no previa). Risk Assessment Risk for Shoulder Dystocia Historical/Initial OB: NEGATIVE FOR: Pelvic Abnormality, Pre- BMI>30, Previous Shoulder Dystocia or Previous Macrosomia 36 Weeks: NEGATIVE FOR: Current Gestational DM, EFW>4500gms or Maternal Weight Gain>40lbs Date/Initial: 04/23/22 Delivery Plan @ 36wks: spont labor, Risk for Pre-Eclampsia Date Initiated/Initials: 04/23/22 Yes, if one or more: NEGATIVE FOR: Hx Pre-E/Gest HTN, Chronic HTN, Multiple Gestation, Pre-gestational DM, Renal Disease, Systemic Lupus or APA Syndrome Yes, if 2 or more: POSITIVE FOR: Nulliparity; NEGATIVE FOR: Age>= 35 yrs, >10yr btwn pregnancies, BMI>30, ethinicty, Mother/Sister w/ Pre-E or Previous IUGR Risk for Post- Hemorrhage Initial: NEGATIVE FOR: Multiple Gestation, Previous PPH, Known Clotting Deficiency, Grand Multiparity or Anticoagulation 36 Weeks: NEGATIVE FOR: Anemia, hgb<10, Low platelets(thrombocytopenia), Gestational HTN or Pre-E, Polyhydraminios or EFW>4500gms Counseled re: Active Management: Yes Risks Reviewed Risks Reviewed Upon Admission: Yes
[2024-12-21 19:31] LABS: Abs Immature Grans 0.07 10^3/uL (0.0-0.06); HCT 34.3 % (36.0-46.0); HGB 12.3 g/dL (11.2-15.7); Immature Grans % 0.6 %; MCH 33.0 pg (27.0-33.0); MCHC 35.9 % (32.0-36.0); MCV 92 fL (80-95); MPV 9.7 fL (8.0-11.0); Platelet Count 231 10^3/uL (130-400); RBC 3.73 10^6/uL (3.93-5.22); RDW 13.2 % (11.7-14.6); RDW-SD 43.8 fL; WBC 11.70 10^3/uL (4.4-10.8)
[2024-12-21 19:49] LABS: Iron 63 ug/dL (50-170); Total Iron Binding Capacity 385 ug/dL (250-450); Transferrin Sat 16 % (15-50)
[2024-12-21 19:57] LABS: Ferritin 26 ng/mL (8-252)
[2024-12-21 20:50] VITALS: BP 96/60; PULSE 84; RESP 17; TEMP 36.7
[2024-12-21] MEDS: RHO(D) Immune Globulin 1,500 UNIT Syringe 1500 UNIT IM (21:24)
[2024-12-21 22:03] LABS: Glucose Negative (Negative)
[2024-12-21 22:11] LABS: RBC 0-2 HPF (0-2)
[2024-12-21 22:12] LABS: C & S Indicated? No
[2024-12-22 05:57] VITALS: BP 98/63; PULSE 74; RESP 16; TEMP 36.6
[2024-12-22 07:45] VITALS: BP 100/69; PULSE 91; RESP 16; TEMP 36.7; O2SAT 98
--- NOTE | 2024-12-22 08:09 | W.PM.OBDISCH ---
Date of service: 12/22/24 Time of Service: 08:09 DS: Diagnosis Discharge Diagnosis (1) Vaginal bleeding: Status: Acute Discharge Plan Disposition Condition: Good Condition: Good Discharge Details Reason For Visit: NST Attending Provider: Vane Coronel Primary Care Provider: Lina Carmen Recommendations for Follow Up Recommended tests to be ordered by follow up provider: 29 yo (h/o breech x1) presents at 16 1 as dated by LMP equal to 8 wk US (GEO 06/06/2025) presented to L&D with complaints of an isolated episode of vaginal bleeding. She was noted to have a viable with good fluid, a posterior placenta without previa, and no evidence of labor; however, she had enough blood in the vaginal vault (3 soaked sanchez-swabs worth) and lived far enough away from the hospital that she was observed overnight in an abundance of caution. She did receive Rhogam over the course of her stay. The following morning she denied any further bleeding. She was discharged with instructions for close follow up and pelvic rest. Home Meds and New Rx's Prescriptions: No Action 19 29 mg iron- 1 mg tablet 1 tab PO DAILY Discharge Instructions Instructions: Bleeding in Early (DC) Activity:: pelvic rest until cleared Activity:: No high-impact activity Equipment/Supplies:: No Equipment Needed Diet:: Normal Diet Discharge Orders Discharge Orders: Discharge Order (Routine); Ordered 12/22/24 Ordered By: Vane Coronel OB:DS Summary Contraception Discussed Contraception Discussed: No, Status at Discharge Functional status at discharge: independent ambulation Overall status at discharge: patient is back to baseline Mental Status: mental status grossly normal Speech and Movement: speech and movement normal Mood: congruent mood Affect: normal affect Exam Physical Exam Vital signs: Temp Pulse Resp BP Pulse Ox 97.9 F 74 16 98/63 L 100 12/22/24 05:57 12/22/24 05:57 12/22/24 05:57 12/22/24 05:57 12/21/24 17:17 PFSH All Active Problems (Updated 11/17/24 @ 11:59 by Courtney Katz) Rh negative status during (Acute) Supervision of other normal (Acute) (Acute) Late menses (Acute) Chronic back pain (Acute) Left groin pain (Acute) Vaginal bleeding (Acute) Medical History (Updated 11/17/24 @ 11:59 by Courtney Katz) Encounter for care of lactating mother problem Term delivered Surgical History (Updated 04/23/22 @ 10:10 by Kylie Vasquez CNM) [place] teeth extracted age 18 no problems with anesthesia Family History (Updated 10/20/22 @ 12:34 by Kylie Armendariz CNM) Maternal Grandmother Diabetes Anxiety Maternal Grandfather FH: kidney cancer Stroke Dementia Sister Anxiety Other Uterine contractions Social History (Updated 04/23/22 @ 10:14 by Kylie Vasquez CNM) Smoking/Tobacco Use Status: Never Smoking risk assessment performed?: Yes Housing: house History History 2 Para 1 Hx # Term Pregnancies 1 Multiple births 0 Hx # Pregnancies 0 Ectopic pregnancies 0 AB induced 0 Hx Number of Living Children 1 AB spontaneous 0 Past Pregnancies Del. Date GA/Weeks # Preg Succ Route Wgt Sex Labor Lgth Anesthesia Location Prov Complic 10/20/22 38 No Yes vaginal 6 lb 10 oz Female 7hrs 9min MD Ita/CHRISSY Javier other Delivery Date: 10/20/22 Last Updated by: Talisha Barrett MD 1/8/9; limp/no spontaneous respiratory effort/pallor/cyanosis; Baby placed in warmer, requiring resc. breathing by Pizza Delivery Driver. Patient was transferred from [facility] at 3cm dilation; Patient presented with fetus in joslyn breech presentation. DS: Data Vitals/I&O Vitals and I&O: Vital Signs Temperature 97.9 F 12/22/24 05:57 Temperature Source Oral 12/22/24 05:57 Temperature Source Oral 12/21/24 20:50 Pulse 74 12/22/24 05:57 Pulse Rhythm Regular 12/21/24 17:58 Respiratory Rate 16 12/22/24 05:57 Blood Pressure 98/63 L 12/22/24 05:57 Blood Pressure Mean 74 12/22/24 05:57 Pulse Oximetry 100 12/21/24 17:17 Oxygen Delivery Method Room Air 12/22/24 05:57 Oxygen Flow Rate 0 12/22/24 05:57 Pain Level 0 12/22/24 05:57 Intake & Output 12/21/24 12/21/2412/22/25 11:59 23:59 11:59 Weight 142 lb 13.753 oz Other: Urine Color Pale Yellow Data Completed and Pending Labs on day of discharge: Labs from last 24 hours 12/21/24 12/21/24 19:19 17:12 WBC 11.70 H RBC 3.73 L Hgb 12.3 Hct 34.3 L MCV 92 MCH 33.0 MCHC 35.9 RDW 13.2 Plt Count 231 MPV 9.7 Immature Gran % 0.6 Neutrophils % 67.5 Lymphocytes % 24.4 Monocytes % 6.3 Eosinophils % 0.9 Basophils % 0.3 Nucleated RBC % 0.0 Absolute Neutrophils 7.90 H Absolute Lymphocytes 2.85 Absolute Monocytes 0.74 Absolute Eosinophils 0.11 Absolute Basophils 0.04 Iron 63 TIBC 385 Transferrin % Sat 16 Ferritin 26 Urine Color Yellow Urine Clarity Clear Urine pH 6.5 Ur Specific [place] 1.010 Urine Protein Negative Urine Ketones Negative Urine Blood Moderate H Urine Nitrite Negative Urine Bilirubin Negative Urine Urobilinogen 0.2 Ur Leukocyte Esterase Small H Urine RBC 0-2 Urine WBC 3-5 Ur Epithelial Cells Few Urine Crystals Negative Urine Bacteria Few Urine Casts Negative Urine Mucus Negative Ur Culture Indicated? No Urine Glucose Negative ABO/Rh A Negative Antibody Screen NEGATIVE Rhogam Unit Number 251 Unit Expiration Date 05/31/25 Product Lot # [id number]
[2024-12-22 08:51] VITALS: BP 133/83; PULSE 76
== END 2024-12-22 08:40 ==
LOC: OBS 12-22 08:08
PROVIDERS: Admitting Provider Obstetrics & Gynecology; PCP Family Medicine; Visit Provider Obstetrics & Gynecology
DX: O20.8 Other hemorrhage in early pregnancy (principal); Z3A.16 16 weeks gestation of pregnancy; O26.892 Other specified pregnancy related conditions, second trimester; Z67.91 Unspecified blood type, Rh negative; G89.29 Other chronic pain; M54.9 Dorsalgia, unspecified
CPT/HCPCS: 86850; 86900; 86901; 90384; 81003; 81015; 82728; 83540; 83550; 85025; G0378; J2790